=== PATIENT | female | born 1965 | race Caucasian/White ===

== ENCOUNTER 2017-12-22 02:26 | Observation (INO) | payer OTHER ==
[2017-12-22] MEDS ORDERED: morphine 2 MG INJ IV (04:00)
[2017-12-22] MEDS ORDERED: DOCUSATE SODIUM 100 MG CAP PO (04:00)
[2017-12-22] MEDS ORDERED: NACL 0.9% 3 ML SYG IV (04:00)
[2017-12-22] MEDS ORDERED: NITROGLYCERIN (SL) 0.4 MG TAB SL (04:00)
[2017-12-22] MEDS ORDERED: BISACODYL (EC) 5 MG TAB PO (04:00)
[2017-12-22] MEDS: KETOROLAC 15 MG INJ IV (04:27)
[2017-12-22] MEDS: SOD CHLORIDE 0.9% 500 ML IV (04:47)
[2017-12-22 05:22] LABS: ADD MAN DIFF? NO
[2017-12-22 05:30] LABS: ABNORMAL IP MESSAGE 1; BASOPHILS % 0.9 % (0.0-2.0); EOSINOPHILS # 0.1 10^3/ul (0.0-0.5); EOSINOPHILS % 1.1 % (0.0-7.0); HEMOGLOBIN 8.4 g/dl (12.0-16.0); LYMPHOCYTES # 1.6 10^3/ul (0.8-2.9); LYMPHOCYTES % 33.4 % (15.0-51.0); MEAN CORPUSCULAR HEMOGLOBIN 20.4 pg (29.0-33.0); MEAN CORPUSCULAR VOLUME 68.1 fl (82.0-101.0); MEAN PLATELET VOLUME 9.2 fl (7.4-10.4); MONOCYTE # 0.5 10^3/ul (0.3-0.9); MONOCYTES % 11.1 % (0.0-11.0); NEUTROPHIL # 2.5 10^3/ul (1.6-7.5); NEUTROPHILS % 53.3 % (39.0-77.0); PLATELET COUNT 303 10^3/UL (140-415); RED BLOOD COUNT 4.11 10^6/ul (4.20-5.40); RED CELL DISTRIBUTION WIDTH 23.1 % (11.5-14.5)
[2017-12-22 05:30] LABS: WHITE BLOOD COUNT 4.7 10^3/ul (4.8-10.8)
[2017-12-22 05:38] LABS: POSITIVE DIFF @See below
[2017-12-22 06:14] LABS: MAGNESIUM 2.1 mg/dl (1.7-2.5)
[2017-12-22 06:14] LABS: CREATINE KINASE 48 IU/L (23-200)
[2017-12-22 06:29] LABS: CREATINE KINASE 25 IU/L (23-200)
[2017-12-22 06:33] LABS: CK INDEX 1.9; CK-MB 0.93 ng/ml (0.0-2.4); TROPONIN-I < 0.012 ng/ml (0.000-0.120)
[2017-12-22 06:42] LABS: CK-MB 0.25 ng/ml (0.0-2.4); TROPONIN-I < 0.012 ng/ml (0.000-0.120)
[2017-12-22 06:52] LABS: THYROID STIMULATING HORMONE 0.807 MIU/L (0.465-4.680)
[2017-12-22 07:40] LABS: ALANINE AMINOTRANSFERASE 25 IU/L (13-69); ALBUMIN 3.5 g/dl (3.3-4.9); ALBUMIN/GLOBULIN RATIO 1.16; ALKALINE PHOSPHATASE 50 IU/L (42-121); ANION GAP 10 (8-16); ASPARTATE AMINO TRANSFERASE 13 IU/L (15-46); BILIRUBIN,INDIRECT 0.3 mg/dl (0-1.1); BILIRUBIN,TOTAL 0.3 mg/dl (0.2-1.3); BLOOD UREA NITROGEN 4 mg/dl (7-20); CALCIUM 9.5 mg/dl (8.4-10.2); CARBON DIOXIDE 24 mmol/L (21-31); CHLORIDE 110 mmol/L (97-110); CREATININE 0.54 mg/dl (0.44-1.00); GLUCOSE 86 mg/dl (70-220); POTASSIUM 4.2 mmol/L (3.5-5.1); SODIUM 140 mmol/L (135-144); TOTAL PROTEIN 6.5 g/dl (6.1-8.1)
[2017-12-22 07:49] LABS: IRON 15 ug/dl (35-150)
[2017-12-22 07:59] LABS: % IRON SATURATION 3 % SAT (22-52); TOTAL IRON BINDING CAPACITY 458 ug/dl (241-421)
[2017-12-22 08:03] LABS: HEMOGLOBIN A1C 5.7 % (0-5.9)
[2017-12-22 08:24] LABS: FERRITIN 3.2 ng/ml (11.1-264.0)
[2017-12-22 12:15] LABS: CREATINE KINASE 28 IU/L (23-200)
[2017-12-22 12:26] LABS: CK INDEX 0.8; CK-MB < 0.22 ng/ml (0.0-2.4); TROPONIN-I < 0.012 ng/ml (0.000-0.120)
[2017-12-22] MEDS: REGADENOSON 0.4 MG/5 ML SYG (13:29)
[2017-12-22] MEDS: SOD CHLORIDE 0.9% 250 ML IV* (16:10)
[2017-12-22] MEDS: SOD FERRIC GLUC COMPLX 125 MG in SOD CHLORIDE 0.9% 100 ML IVPB (18:35)
[2017-12-22 21:32] LABS: IMMEDIATE SPIN CROSSMATCH 1 2
[2017-12-23] MEDS: ACETAMINOPHEN 325 MG TAB PO (01:09)
[2017-12-23] MEDS: HYDROCODONE/APAP (10/325) TAB PO ×2 (01:48→08:55)
[2017-12-23] MEDS: ONDANSETRON 4 MG INJ IV (01:49)
[2017-12-23] MEDS: BACLOFEN 10 MG TAB PO (08:55)
[2017-12-23 10:18] LABS: ADD MAN DIFF? NO
[2017-12-23 10:20] LABS: WHITE BLOOD COUNT 7.9 10^3/ul (4.8-10.8)
[2017-12-23 10:20] LABS: ABNORMAL IP MESSAGE 1; BASOPHIL # 0.1 10^3/ul (0.0-0.1); BASOPHILS % 0.8 % (0.0-2.0); EOSINOPHILS # 0.1 10^3/ul (0.0-0.5); EOSINOPHILS % 1.7 % (0.0-7.0); HEMOGLOBIN 11.3 g/dl (12.0-16.0); LYMPHOCYTES # 1.5 10^3/ul (0.8-2.9); LYMPHOCYTES % 18.7 % (15.0-51.0); MEAN CORPUSCULAR HEMOGLOBIN 21.4 pg (29.0-33.0); MEAN CORPUSCULAR HGB CONC 29.7 g/dl (32.0-37.0); MEAN PLATELET VOLUME 10.1 fl (7.4-10.4); MONOCYTE # 0.6 10^3/ul (0.3-0.9); MONOCYTES % 7.4 % (0.0-11.0); NEUTROPHIL # 5.6 10^3/ul (1.6-7.5); NEUTROPHILS % 71.1 % (39.0-77.0); PLATELET COUNT 262 10^3/UL (140-415); RED BLOOD COUNT 5.28 10^6/ul (4.20-5.40); RED CELL DISTRIBUTION WIDTH 22.7 % (11.5-14.5)
[2017-12-23 10:31] LABS: POSITIVE DIFF @See below
== END 2017-12-23 15:00 | disposition home or self-care (01) ==
LOC: 6WM 02:26
PROVIDERS: Family Medicine
DX: D50.0 Iron deficiency anemia secondary to blood loss (chronic) (principal); R06.00 Dyspnea, unspecified; N92.0 Excessive and frequent menstruation with regular cycle; R00.1 Bradycardia, unspecified; F41.9 Anxiety disorder, unspecified
CPT/HCPCS: 36430; 71045; 78452; 80053; 82550; 82553; 82728; 83036; 83540; 83735; 84443; 84484; 84703; 85025; 86850; 86900; 86901; 86920; 93005; 93017; 93306; G0378